=== PATIENT | female | born 1980 | race Caucasian/White ===

== ENCOUNTER 2016-09-16 13:46 | Emergency (ER) | payer MEDICAID, OTHER ==
[~2016-09-16] VITALS: Ht 157.5 cm; Wt 80.0 kg
[2016-09-16] MEDS ORDERED: PREN-88 PO (15:01)
[2016-09-16] MEDS ORDERED: FOLI-43 PO (15:01)
[2016-09-16] MEDS ORDERED: HYDROXYCHLOROQUINE (15:01)
[2016-09-16 15:58] LABS: CHLORIDE 106 mEq/L (98-107); INDEX HEMOLYSI 1 (1-3); INDEX ICTERIC 1 (1-4); INDEX LIPEMIC 1 (1-3)
[2016-09-16 15:59] LABS: BASOPHILS % 0.3 % (0.0-2.0); DIFFERENTIAL COMMENT 0; EOSINOPHILS % 0.4 % (0.0-5.0); HEMATOCRIT. 39.4 % (36.0-48.0); HEMOGLOBIN. 13.3 g/dL (12.0-16.0); LYMPHOCYTES % 12.9 % (20.0-50.0); MEAN CORPUSCULAR HEMOGLOBIN 35.2 pg (28.0-32.0); MEAN CORPUSCULAR HGB CONC 33.7 g/dL (31.0-37.0); MEAN CORPUSCULAR VOLUME 104.4 fL (81.0-99.0); MEAN PLATELET VOLUME 8.4 fl (7.4-10.4); MONOCYTES % 10.2 % (2.0-8.0); NEUTROPHILS % 76.2 % (40.0-76.0); PLATELET 190 x1000/uL (130-400); RED BLOOD CELL COUNT 3.77 mill/uL (4.2-5.4); RED CELL DISTRIBUTION WIDTH 13.6 % (11.6-14.6); WHITE BLOOD COUNT 9.6 x1000/uL (4.5-11.0)
[2016-09-16 16:06] LABS: ANION GAP 14; CALCIUM 8.5 mg/dL (8.5-10.1); CARBON DIOXIDE 24 mEq/L (21-32); UREA NITROGEN BLOOD 7 mg/dL (7-21); eGFR > 60 mL/min (>60)
[2016-09-16 16:20] LABS: B-HCG QUANTITATIVE 3541 mIU/mL (<3)
[2016-09-16] MEDS ORDERED: SODIUM CHLORIDE 0.9% 1,000 ML IV ONE (17:15)
[2016-09-16] MEDS ORDERED: ACETAMINOPHEN 325MG TABLET PO ONE (17:15)
[2016-09-16 19:55] VITALS: BP 122/65
== END 2016-09-16 20:05 | disposition home or self-care (01) ==
LOC: ER 16:12
DX: O20.0 Threatened abortion (principal); Z3A.10 10 weeks gestation of pregnancy; Z79.899 Other long term (current) drug therapy
CPT/HCPCS: 36415; 76801; 76817; 80048; 84702; 85025; 86850; 86900; 86901; 96360; 96361; 99285; J7030; Z7610

== ENCOUNTER 2018-08-23 20:53 | Observation (INO) | payer MEDICAID ==
[~2018-08-23] VITALS: Ht 162.6 cm; Wt 88.9 kg
[~2018-08-23 20:53] MED LIST: FOLI-43 PO; HYDROXYCHLOROQUINE; PREN-88 PO
[2018-08-23] MEDS ORDERED: Vit D2 PO (21:49)
[2018-08-23] MEDS ORDERED: P20 MT (21:49)
[2018-08-23 22:45] LABS: CHLORIDE 108 mEq/L (98-107)
[2018-08-23 22:45] LABS: CLARITY URINE CLEAR (CLEAR); COLOR URINE YELLOW (YELLOW); KETONES URINE NEGATIVE (NEGATIVE); LEUKOCYTE ESTERASE URINE TRACE (NEGATIVE); NITRITE URINE NEGATIVE (NEGATIVE); OCCULT BLOOD URINE 2+ (NEGATIVE); PROTEIN URINE NEGATIVE (NEGATIVE); SPECIFIC GRAVITY URINE 1.009 (1.005-1.030); UROBILINOGEN URINE 0.2 E.U./dL (0.2-1.0)
[2018-08-23 22:51] LABS: PARTIAL THROMBOPLASTIN TIME 25.2 sec (23.4-31.0); PROTHROMBIN TIME 9.8 sec (9.1-11.1)
[2018-08-23 22:56] LABS: HEMATOCRIT. 42.1 % (36.0-48.0); HEMOGLOBIN. 14.3 g/dL (12.0-16.0); MEAN CORPUSCULAR HEMOGLOBIN 33.5 pg (28.0-32.0); MEAN CORPUSCULAR VOLUME 99.1 fL (81.0-99.0); RED BLOOD CELL COUNT 4.25 mill/uL (4.2-5.4); RED CELL DISTRIBUTION WIDTH 13.2 % (11.6-14.6)
[2018-08-23 22:57] LABS: PLATELET 33 x1000/uL (130-400)
[2018-08-23 23:04] LABS: PLATELET ESTIMATE MARKEDLY DECREASED
[2018-08-24] MEDS ORDERED: PREDNISONE 20MG TABLET PO SCH (09:00)
[2018-08-24] MEDS ORDERED: LACTATED RINGERS 1,000 ML IV SCH (09:15)
[2018-08-24] MEDS: HYDROXYCHLOROQUINE SULFATE 200MG TABLET PO SCH ×2 (09:30→16:41)
[2018-08-24] MEDS: METHYLPREDNISOLONE SOD SUCC 40 MG/ML VIAL IV SCH ×3 (09:31→22:17)
[2018-08-25] MEDS: METHYLPREDNISOLONE SOD SUCC 40 MG/ML VIAL IV SCH ×3 (04:09→17:01)
[2018-08-25] MEDS: HYDROXYCHLOROQUINE SULFATE 200MG TABLET PO SCH ×2 (09:31→17:01)
[2018-08-25 17:31] LABS: BASOPHILS % 0.1 % (0.0-2.0); EOSINOPHILS % 0.2 % (0.0-5.0); HEMATOCRIT. 42.7 % (36.0-48.0); HEMOGLOBIN. 14.3 g/dL (12.0-16.0); LYMPHOCYTES % 16.5 % (20.0-50.0); MEAN CORPUSCULAR HEMOGLOBIN 33.1 pg (28.0-32.0); MEAN CORPUSCULAR VOLUME 99.2 fL (81.0-99.0); MEAN PLATELET VOLUME 11.1 fl (7.4-10.4); MONOCYTES % 6.6 % (2.0-8.0); NEUTROPHILS % 76.6 % (40.0-76.0); PLATELET 51 x1000/uL (130-400); RED CELL DISTRIBUTION WIDTH 12.9 % (11.6-14.6)
== END 2018-08-25 18:25 | disposition home or self-care (01) ==
LOC: 8 EST LDRP 20:53 → 8 EST A/PP 08-24 15:36
PROVIDERS: ADMIT Specialist; ATTEND Specialist
DX: O99.13 Other diseases of the blood and blood-forming organs and certain disorders involving the immune mechanism complicating the puerperium (principal); D69.6 Thrombocytopenia, unspecified; O26.893 Other specified pregnancy related conditions, third trimester; M32.9 Systemic lupus erythematosus, unspecified; O99.213 Obesity complicating pregnancy, third trimester; O09.513 Supervision of elderly primigravida, third trimester; O03.9 Complete or unspecified spontaneous abortion without complication; R10.2 Pelvic and perineal pain; M54.5 Low back pain; D69.3 Immune thrombocytopenic purpura; Z3A.38 38 weeks gestation of pregnancy
CPT/HCPCS: 36415; 76805; 76815; 76818; 80053; 81003; 85007; 85025; 85027; 85610; 85730; 96374; 96376; 99281; G0378; J2920

== ENCOUNTER 2018-08-29 21:34 | Inpatient (IN) | payer MEDICAID ==
[~2018-08-29] VITALS: Ht 162.6 cm; Wt 77.1 kg
[~2018-08-29 21:34] MED LIST changes: +Vit D2 PO
[2018-08-29] MEDS ORDERED: P20 PO (22:13)
[2018-08-29] MEDS ORDERED: DEXT 5%/LR + PITOCIN 20UNITS/L 1,000 ML IV SCH (22:14)
[2018-08-29] MEDS ORDERED: NALOXONE HCL 0.4 MG/ML 1ML VIAL IM PRN (22:15)
[2018-08-29] MEDS ORDERED: METHYLERGONOVINE MALEATE 0.2 MG/ML IM PRN (22:15)
[2018-08-29] MEDS ORDERED: LIDOCAINE HCL 1% 20ML VIAL (Pyxis) INJ INFIL SCH (22:15)
[2018-08-29] MEDS ORDERED: PENICILLIN G POTASSIUM 5 MMU in DEXT 5% WATER 100 ML IV SCH (23:00)
[2018-08-29] MEDS: PREDNISONE 20MG TABLET PO SCH (23:16)
[2018-08-29 23:33] LABS: PARTIAL THROMBOPLASTIN TIME 22.9 sec (23.4-31.0); PROTHROMBIN TIME 9.7 sec (9.1-11.1)
[2018-08-29 23:34] LABS: HEMATOCRIT. 43.8 % (36.0-48.0); MEAN CORPUSCULAR VOLUME 99.7 fL (81.0-99.0); MEAN PLATELET VOLUME 10.6 fl (7.4-10.4); PLATELET 97 x1000/uL (130-400); RED CELL DISTRIBUTION WIDTH 13.7 % (11.6-14.6)
[2018-08-30] MEDS ORDERED: PREDNISONE 20MG TABLET PO SCH
[2018-08-30 00:19] LABS: CLARITY URINE CLEAR (CLEAR); COLOR URINE YELLOW (YELLOW); KETONES URINE NEGATIVE (NEGATIVE); LEUKOCYTE ESTERASE URINE NEGATIVE (NEGATIVE); NITRITE URINE NEGATIVE (NEGATIVE); OCCULT BLOOD URINE 2+ (NEGATIVE); PROTEIN URINE NEGATIVE (NEGATIVE); SPECIFIC GRAVITY URINE 1.011 (1.005-1.030); UROBILINOGEN URINE 0.2 E.U./dL (0.2-1.0)
[2018-08-30 01:19] LABS: *AMPHETAMINES SCREEN URINE NEGATIVE (NEGATIVE); *BARBITURATES SCREEN URINE NEGATIVE (NEGATIVE); *BENZODIAZEPINES SCREEN URINE NEGATIVE (NEGATIVE); *COCAINE SCREEN URINE NEGATIVE (NEGATIVE); METHADONE URINE SCREEN NEGATIVE (NEGATIVE); OPIATES URINE SCREEN NEGATIVE (NEGATIVE)
[2018-08-30 01:20] LABS: CANNABINOID URINE SCREEN NEGATIVE (NEGATIVE); PHENCYCLIDINE URINE SCREEN NEGATIVE (NEGATIVE)
[2018-08-30] MEDS: LACTATED RINGERS 1,000 ML IV SCH ×3 (01:26→16:33)
[2018-08-30 02:53] LABS: PLATELET ESTIMATE DECREASED
[2018-08-30] MEDS: PENICILLIN G POTASSIUM 2.5 MMU in DEXTROSE 5% WATER 50 ML IV SCH ×2 (03:38→08:37)
[2018-08-30] MEDS: PREDNISONE 20MG TABLET PO SCH ×3 (05:23→20:37)
[2018-08-30] MEDS: HYDROXYCHLOROQUINE SULFATE 200MG TABLET PO SCH ×2 (08:37→17:19)
[2018-08-30] MEDS: FOLIC ACID 1MG TABLET PO SCH (08:37)
[2018-08-30 11:21] LABS: CHLORIDE 107 mEq/L (98-107)
[2018-08-30 12:04] LABS: BASOPHILS % 0.1 % (0.0-2.0); HEMATOCRIT. 43.6 % (36.0-48.0); HEMOGLOBIN. 14.6 g/dL (12.0-16.0); MEAN CORPUSCULAR HEMOGLOBIN 33.4 pg (28.0-32.0); MEAN CORPUSCULAR VOLUME 99.8 fL (81.0-99.0); MEAN PLATELET VOLUME 10.5 fl (7.4-10.4); MONOCYTES % 5.4 % (2.0-8.0); NEUTROPHILS % 81.5 % (40.0-76.0); PLATELET 97 x1000/uL (130-400); RED BLOOD CELL COUNT 4.37 mill/uL (4.2-5.4); RED CELL DISTRIBUTION WIDTH 13.3 % (11.6-14.6)
[2018-08-30] MEDS: BUTORPHANOL TARTRATE 2 MG/ML VIAL IV PRN ×2 (14:43→17:19)
[2018-08-30 19:01] LABS: BASOPHILS % 0.1 % (0.0-2.0); EOSINOPHILS % 0.5 % (0.0-5.0); HEMATOCRIT. 42.9 % (36.0-48.0); HEMOGLOBIN. 14.7 g/dL (12.0-16.0); LYMPHOCYTES % 19.2 % (20.0-50.0); MEAN CORPUSCULAR HEMOGLOBIN 33.8 pg (28.0-32.0); MEAN PLATELET VOLUME 9.5 fl (7.4-10.4); MONOCYTES % 7.4 % (2.0-8.0); NEUTROPHILS % 72.8 % (40.0-76.0); PLATELET 83 x1000/uL (130-400); RED BLOOD CELL COUNT 4.34 mill/uL (4.2-5.4); RED CELL DISTRIBUTION WIDTH 13.6 % (11.6-14.6)
[2018-08-31] MEDS: LACTATED RINGERS 1,000 ML IV SCH ×3 (01:29→14:06)
[2018-08-31] MEDS ORDERED: BUTORPHANOL TARTRATE 2 MG/ML VIAL IV PRN (01:45)
[2018-08-31] MEDS ORDERED: NALOXONE HCL 0.4 MG/ML 1ML VIAL IM PRN (01:45)
[2018-08-31] MEDS ORDERED: METHYLERGONOVINE MALEATE 0.2 MG/ML IM PRN (01:45)
[2018-08-31 02:32] LABS: BASOPHILS % 0.4 % (0.0-2.0); EOSINOPHILS % 0.2 % (0.0-5.0); HEMATOCRIT. 42.8 % (36.0-48.0); HEMOGLOBIN. 14.4 g/dL (12.0-16.0); LYMPHOCYTES % 7.4 % (20.0-50.0); MEAN CORPUSCULAR HEMOGLOBIN 33.6 pg (28.0-32.0); MEAN CORPUSCULAR VOLUME 100.1 fL (81.0-99.0); MEAN PLATELET VOLUME 9.3 fl (7.4-10.4); MONOCYTES % 6.4 % (2.0-8.0); NEUTROPHILS % 85.6 % (40.0-76.0); PLATELET 65 x1000/uL (130-400); RED BLOOD CELL COUNT 4.28 mill/uL (4.2-5.4); RED CELL DISTRIBUTION WIDTH 13.6 % (11.6-14.6)
[2018-08-31] MEDS: PREDNISONE 20MG TABLET PO SCH (02:40)
[2018-08-31 07:44] LABS: HEMATOCRIT. 44.4 % (36.0-48.0); HEMOGLOBIN. 14.9 g/dL (12.0-16.0); MEAN CORPUSCULAR HEMOGLOBIN 33.5 pg (28.0-32.0); MEAN PLATELET VOLUME 9.6 fl (7.4-10.4); PLATELET 64 x1000/uL (130-400); RED BLOOD CELL COUNT 4.44 mill/uL (4.2-5.4); RED CELL DISTRIBUTION WIDTH 13.7 % (11.6-14.6)
[2018-08-31] MEDS: METHYLPREDNISOLONE SOD SUCC 125 MG/2 ML VIAL IV SCH ×2 (10:05→18:55)
[2018-08-31 11:04] LABS: HEMATOCRIT. 43.8 % (36.0-48.0); HEMOGLOBIN. 14.7 g/dL (12.0-16.0); MEAN CORPUSCULAR HEMOGLOBIN 33.5 pg (28.0-32.0); MEAN CORPUSCULAR VOLUME 99.9 fL (81.0-99.0); PLATELET 65 x1000/uL (130-400); RED BLOOD CELL COUNT 4.38 mill/uL (4.2-5.4); RED CELL DISTRIBUTION WIDTH 13.7 % (11.6-14.6)
[2018-08-31] MEDS ORDERED: CITRIC ACID/SODIUM CITRATE SOLN 30ML UDC PO SCH (11:15)
[2018-08-31 12:41] LABS: PLATELET ESTIMATE DECREAS
[2018-08-31] MEDS ORDERED: SUCCINYLCHOLINE CHLORIDE 200MG/10ML IV ONE (13:21)
[2018-08-31] MEDS ORDERED: LIDOCAINE HCL/PF 1% 10 MG/ML 5ML VIAL ONE (13:21)
[2018-08-31] MEDS ORDERED: PROPOFOL 200MG/20ML VIAL IV ONE ×2 (13:21→16:08)
[2018-08-31] MEDS ORDERED: SODIUM CHLORIDE 0.9% 10ML VIAL ONE (13:22)
[2018-08-31] MEDS ORDERED: EPHEDRINE SULFATE 50MG/ML VIAL ONE (13:24)
[2018-08-31] MEDS ORDERED: CEFAZOLIN SODIUM 1000MG/VIAL ONE (13:26)
[2018-08-31] MEDS ORDERED: PHENYLEPHRINE HCL 10 MG/ML 1ML (IV VIAL) IV ONE (13:26)
[2018-08-31] MEDS ORDERED: ONDANSETRON HCL 4MG/2ML INJ ONE ×2 (13:26→15:16)
[2018-08-31] MEDS ORDERED: HYDROMORPHONE HCL/PF 2MG/ML CPJ IV PRN (14:15)
[2018-08-31] MEDS ORDERED: FENTANYL CITRATE/PF 50MCG/ML 2ML VIAL IV PRN (14:15)
[2018-08-31] MEDS ORDERED: ONDANSETRON HCL 4MG/2ML INJ IV PRN ×2 (14:15→16:15)
[2018-08-31] MEDS ORDERED: OXYTOCIN 10 UNITS/ML 1ML ONE ×2 (15:06→15:49)
[2018-08-31] MEDS ORDERED: FENTANYL CITRATE/PF 50MCG/ML 2ML VIAL ONE (15:14)
[2018-08-31] MEDS ORDERED: HYDROMORPHONE HCL/PF 2MG/ML (OR) ONE (15:48)
[2018-08-31] MEDS ORDERED: DEXT 5%/LR + PITOCIN 20UNITS/L 1,000 ML IV SCH (16:08)
[2018-08-31] MEDS ORDERED: INFLUENZA VIRUS VACCINE(AFLURIA) 0.5ML SYR IM ONE (16:15)
[2018-08-31] MEDS ORDERED: TETANUS, DIPHTHERIA, PERTUSSIS VAC/PF 0.5ML (>7YR OLD) IM ONE (16:15)
[2018-08-31] MEDS ORDERED: IBUPROFEN 800MG TABLET PO PRN (16:15)
[2018-08-31] MEDS ORDERED: LANOLIN OINT 0.25 GM TUBE TOP PRN (16:15)
[2018-08-31] MEDS ORDERED: BISACODYL 10MG SUPP PR PRN (16:15)
[2018-08-31] MEDS ORDERED: IBUPROFEN 400MG TABLET PO PRN (16:15)
[2018-08-31 18:00] VITALS: BP 117/74
[2018-08-31 19:01] VITALS: BP 128/80
[2018-08-31 19:30] VITALS: BP 124/65
[2018-08-31 20:51] LABS: PLATELET ESTIMATE DECREASED
[2018-08-31] MEDS: DOCUSATE SODIUM 100MG CAPSULE PO SCH (21:00)
[2018-08-31] MEDS ORDERED: DIPHENHYDRAMINE 25MG CAPSULE PO PRN (21:00)
[2018-08-31 21:24] LABS: HEMATOCRIT. 36.2 % (36.0-48.0); MEAN CORPUSCULAR HEMOGLOBIN 33.1 pg (28.0-32.0); MEAN CORPUSCULAR VOLUME 99.3 fL (81.0-99.0); MEAN PLATELET VOLUME 9.9 fl (7.4-10.4); PLATELET 65 x1000/uL (130-400); RED BLOOD CELL COUNT 3.65 mill/uL (4.2-5.4); RED CELL DISTRIBUTION WIDTH 13.5 % (11.6-14.6)
[2018-08-31 21:30] LABS: HEMOGLOBIN. 12.1 g/dL (12.0-16.0)
[2018-08-31 21:56] LABS: PLATELET ESTIMATE DECREASED
[2018-08-31 22:00] VITALS: BP 120/60
[2018-08-31] MEDS: SIMETHICONE 80MG TABLET CHEW PO SCH (23:22)
[2018-08-31] MEDS: HYDROCODONE/ACETAMINOPHEN 5/325MG TABLET PO PRN (23:23)
[2018-09-01 01:39] LABS: HEMATOCRIT. 34.2 % (36.0-48.0); HEMOGLOBIN. 11.6 g/dL (12.0-16.0); MEAN CORPUSCULAR HEMOGLOBIN 33.9 pg (28.0-32.0); MEAN CORPUSCULAR VOLUME 99.7 fL (81.0-99.0); MEAN PLATELET VOLUME 9.8 fl (7.4-10.4); PLATELET 51 x1000/uL (130-400); RED BLOOD CELL COUNT 3.44 mill/uL (4.2-5.4); RED CELL DISTRIBUTION WIDTH 13.3 % (11.6-14.6)
[2018-09-01] MEDS: METHYLPREDNISOLONE SOD SUCC 125 MG/2 ML VIAL IV SCH ×3 (02:03→18:13)
[2018-09-01 05:13] LABS: PLATELET ESTIMATE DECREASED
[2018-09-01 07:08] LABS: HEMATOCRIT. 33.2 % (36.0-48.0); HEMOGLOBIN. 11.1 g/dL (12.0-16.0); MEAN CORPUSCULAR HEMOGLOBIN 33.4 pg (28.0-32.0); MEAN CORPUSCULAR VOLUME 99.9 fL (81.0-99.0); MEAN PLATELET VOLUME 10.9 fl (7.4-10.4); PLATELET 54 x1000/uL (130-400); RED BLOOD CELL COUNT 3.32 mill/uL (4.2-5.4); RED CELL DISTRIBUTION WIDTH 13.1 % (11.6-14.6)
[2018-09-01 09:00] VITALS: BP 116/66
[2018-09-01] MEDS: FOLIC ACID 1MG TABLET PO SCH (09:00)
[2018-09-01] MEDS: HYDROXYCHLOROQUINE SULFATE 200MG TABLET PO SCH ×2 (09:46→18:12)
[2018-09-01] MEDS: PRENATAL VIT/FE FUMARATE/FA TABLET PO SCH (09:48)
[2018-09-01] MEDS: FERROUS SULFATE 325MG TABLET PO SCH ×3 (09:48→18:12)
[2018-09-01] MEDS: SIMETHICONE 80MG TABLET CHEW PO SCH ×4 (09:49→21:03)
[2018-09-01 10:25] LABS: PLATELET ESTIMATE MARKEDLY DECREASED
[2018-09-01 12:19] LABS: HEMATOCRIT. 33.6 % (36.0-48.0); HEMOGLOBIN. 11.5 g/dL (12.0-16.0); MEAN CORPUSCULAR HEMOGLOBIN 34.1 pg (28.0-32.0); MEAN CORPUSCULAR VOLUME 99.8 fL (81.0-99.0); PLATELET 56 x1000/uL (130-400); RED BLOOD CELL COUNT 3.37 mill/uL (4.2-5.4); RED CELL DISTRIBUTION WIDTH 13.4 % (11.6-14.6)
[2018-09-01] MEDS: HYDROCODONE/ACETAMINOPHEN 5/325MG TABLET PO PRN ×3 (12:44→21:04)
[2018-09-01 13:02] LABS: PLATELET ESTIMATE DECREASED
[2018-09-01 17:00] VITALS: BP 98/58
[2018-09-01 20:06] LABS: BASOPHILS % 0.2 % (0.0-2.0); EOSINOPHILS % 0.1 % (0.0-5.0); HEMATOCRIT. 32.9 % (36.0-48.0); HEMOGLOBIN. 11.2 g/dL (12.0-16.0); MEAN CORPUSCULAR HEMOGLOBIN 33.7 pg (28.0-32.0); MEAN CORPUSCULAR VOLUME 99.5 fL (81.0-99.0); MONOCYTES % 5.6 % (2.0-8.0); NEUTROPHILS % 83.1 % (40.0-76.0); PLATELET 62 x1000/uL (130-400); RED BLOOD CELL COUNT 3.31 mill/uL (4.2-5.4); RED CELL DISTRIBUTION WIDTH 13.2 % (11.6-14.6)
[2018-09-01] MEDS: DOCUSATE SODIUM 100MG CAPSULE PO SCH (21:02)
[2018-09-01 23:07] VITALS: BP 112/56
[2018-09-02] MEDS: HYDROCODONE/ACETAMINOPHEN 5/325MG TABLET PO PRN ×4 (01:11→16:44)
[2018-09-02] MEDS: METHYLPREDNISOLONE SOD SUCC 125 MG/2 ML VIAL IV SCH ×2 (02:21→10:16)
[2018-09-02 04:30] VITALS: BP 115/58
[2018-09-02 08:00] VITALS: BP 113/59
[2018-09-02] MEDS: SIMETHICONE 80MG TABLET CHEW PO SCH ×3 (08:26→16:59)
[2018-09-02] MEDS: PRENATAL VIT/FE FUMARATE/FA TABLET PO SCH (08:26)
[2018-09-02] MEDS: FERROUS SULFATE 325MG TABLET PO SCH ×3 (08:26→16:59)
[2018-09-02] MEDS: HYDROXYCHLOROQUINE SULFATE 200MG TABLET PO SCH ×2 (08:26→17:00)
[2018-09-02 17:00] VITALS: BP 118/69
[2018-09-02] MEDS: PREDNISONE 20MG TABLET PO SCH (19:05)
[2018-09-02 20:00] VITALS: BP 121/58
[2018-09-02] MEDS: DOCUSATE SODIUM 100MG CAPSULE PO SCH (21:12)
[2018-09-03] VITALS: BP 112/72
[2018-09-03] MEDS: PREDNISONE 20MG TABLET PO SCH ×2 (00:14→05:57)
[2018-09-03] MEDS: HYDROCODONE/ACETAMINOPHEN 5/325MG TABLET PO PRN ×3 (01:52→11:27)
[2018-09-03 04:00] VITALS: BP 107/59
[2018-09-03 07:22] LABS: HEMATOCRIT 28.7 % (36.0-48.0); HEMOGLOBIN 9.5 g/dL (12.0-16.0); MEAN CORPUSCULAR HEMOGLOBIN 33.5 pg (28.0-32.0); MEAN CORPUSCULAR VOLUME 101.4 fL (81.0-99.0); PLATELET 82 x1000/uL (130-400); RED BLOOD CELL COUNT 2.83 mill/uL (4.2-5.4); RED CELL DISTRIBUTION WIDTH 13.7 % (11.6-14.6)
[2018-09-03 07:47] VITALS: BP 107/59
[2018-09-03] MEDS: FERROUS SULFATE 325MG TABLET PO SCH (08:34)
[2018-09-03] MEDS: PRENATAL VIT/FE FUMARATE/FA TABLET PO SCH (08:34)
[2018-09-03] MEDS: HYDROXYCHLOROQUINE SULFATE 200MG TABLET PO SCH (08:35)
[2018-09-03] MEDS: SIMETHICONE 80MG TABLET CHEW PO SCH (08:35)
== END 2018-09-03 13:10 | disposition home or self-care (01) | DRG 540 ==
LOC: 8 EST LDRP 21:34 → 8EST 08-31 17:45
PROVIDERS: ADMIT Obstetrics & Gynecology; ATTEND Obstetrics & Gynecology
PROC: 10D00Z1 Extraction of Products of Conception, Low, Open Approach (ICD-10-PCS; principal; 2018-08-31)
DX: O34.13 Maternal care for benign tumor of corpus uteri, third trimester (principal); D69.6 Thrombocytopenia, unspecified; T38.0X5A Adverse effect of glucocorticoids and synthetic analogues, initial encounter; D72.828 Other elevated white blood cell count; O99.12 Other diseases of the blood and blood-forming organs and certain disorders involving the immune mechanism complicating childbirth; N80.9 Endometriosis, unspecified; Y92.89 Other specified places as the place of occurrence of the external cause; Z3A.39 39 weeks gestation of pregnancy; Z37.0 Single live birth
CPT/HCPCS: 36415; 80305; 85007; 85027; 86592; 86703; 86762; 86850; 86900; 86920; 87340; 88307; 99281; G0378; J0330; J0595; J0690; J1170; J2370; J2405; J2540; J2590; J2704; J2930; J3010; J3490; J7060; J7120; J7512